=== PATIENT | female | born 2000 | race Caucasian/White ===

== ENCOUNTER 2021-06-30 17:35 | Outpatient (CLI) | payer OTHER | END 2021-06-30 18:50 | disposition home or self-care (01) | LOC: GENOP 17:35 | DX: O26.853 Spotting complicating pregnancy, third trimester (principal); O99.891 Other specified diseases and conditions complicating pregnancy; M54.50 Low back pain, unspecified; Z88.1 Allergy status to other antibiotic agents; Z3A.29 29 weeks gestation of pregnancy | CPT/HCPCS: 81001; G0463 ==

== ENCOUNTER 2021-09-02 05:28 | Inpatient (IN) | payer OTHER ==
[~2021-09-02] VITALS: Ht 160 cm; Wt 66.2 kg
[2021-09-02] MEDS ORDERED: PEPCID20 MG PO (06:06)
[2021-09-02 06:42] LABS: HEMOGLOBIN 12.7 gm/dl (12.3-15.3); RED BLOOD COUNT 4.19 M/UL (4.00-5.10); WHITE BLOOD COUNT 7.9 K/UL (4.5-11.0)
[2021-09-03 05:19] LABS: HEMOGLOBIN 12.4 gm/dl (12.3-15.3)
[2021-09-03] MEDS ORDERED: IBUPROFEN600 MG PO (08:49)
[2021-09-03] MEDS ORDERED: DOCUSATE SODIU100 MG PO (08:49)
[2021-09-03] MEDS ORDERED: HYDROCODON-ACE1 EAC4 PO (08:49)
== END 2021-09-03 20:09 | disposition home or self-care (01) | DRG 807 ==
LOC: OB 05:28
PROVIDERS: Obstetrics & Gynecology; ADMIT Obstetrics & Gynecology
PROC: 10E0XZZ Delivery of Products of Conception, External Approach (ICD-10-PCS; principal; 2021-09-02)
PROC: 10907ZC Drainage of Amniotic Fluid, Therapeutic from Products of Conception, Via Natural or Artificial Opening (ICD-10-PCS; 2021-09-02)
PROC: 4A1HXCZ Monitoring of Products of Conception, Cardiac Rate, External Approach (ICD-10-PCS; 2021-09-02)
PROC: 0HQ9XZZ Repair Perineum Skin, External Approach (ICD-10-PCS; 2021-09-02)
DX: O99.02 Anemia complicating childbirth (principal); Z37.0 Single live birth; Z20.822 Contact with and (suspected) exposure to COVID-19; D64.9 Anemia, unspecified; Z3A.39 39 weeks gestation of pregnancy; O99.344 Other mental disorders complicating childbirth; F32.A Depression, unspecified; F41.9 Anxiety disorder, unspecified; Z28.310 Unvaccinated for COVID-19; Z88.1 Allergy status to other antibiotic agents; O70.0 First degree perineal laceration during delivery
CPT/HCPCS: 36415; 82800; 85014; 85018; 85025; J2590